=== PATIENT | female | born 1965 | race Caucasian/White ===

== ENCOUNTER 2020-07-25 07:04 | Outpatient (CLI) | payer OTHER, SELFPAY ==
--- NOTE | 2020-07-25 07:11 | US_ITS ---
WS: [id number] THYROID ULTRASOUND (TI-RADS CRITERIA) History: Thyroid nodule.. Technique: Ultrasound examination of the thyroid and adjacent soft tissues is performed. FINDINGS: Right lobe: 4.3 cm x 2.3 cm x 2.3 cm. Volume: 11.8 cm3. Slightly enlarged thyroid lobe. Diffuse coarsened echotexture and heterogeneity with multiple ill-def ined tiny nodules. Left lobe: 4.1 cm x 2.1 cm x 2.2 cm. Volume: 10.0 cm3. Mildly enlarged thyroid with heterogeneity and coarsened echotexture and multiple tiny nodules. No in creased vascularity. Isthmus: 0.7 cm. Estimated total number of nodules greater than or equal to 1 cm: 1 Number of spongiform nodules greater than or equal to 2 cm not described below (TR1): 0 Number of mixed cystic and solid nodules greater than or equal to 1.5 cm not described below (TR2): 0 NODULE: 1 Size: 1.1 x 0.7 x 1.1 cm. Location: Mid RIGHT Composition: Solid/almost completely solid (2) Echogenicity: Isoechoic (1) Shape: Not taller than wide (0) Margins: Lobulated/irregular (2) Echogenic foci: None (0) ACR TI-RADS total points: 5 ACR TI-RADS risk category: TR4 US/US thyroid 97704 Impression: TR4 Recommendation:Follow-up ultrasound in 1, 2, 3 and 5 years. If thyroid nodule(s) change on follow-up examinations the recommendations will be altered as necessary.
== END 2020-07-25 07:05 | disposition home or self-care (01) ==
LOC: US 07:08
PROVIDERS: Visit Provider Family Medicine
DX: E04.1 Nontoxic single thyroid nodule (principal)
CPT/HCPCS: 76536

== ENCOUNTER → 2021-04-01 09:37 | Outpatient (BNVA) | payer OTHER, SELFPAY | PROVIDERS: PCP Family Medicine; Visit Provider Family Medicine | DX: E03.9 Hypothyroidism, unspecified (principal); I10 Essential (primary) hypertension; Z13.220 Encounter for screening for lipoid disorders; Z13.6 Encounter for screening for cardiovascular disorders; Z12.39 Encounter for other screening for malignant neoplasm of breast; E78.2 Mixed hyperlipidemia | CPT/HCPCS: 80053; 80061 ==

== ENCOUNTER 2021-05-20 11:14 | Outpatient (CLI) | payer OTHER, SELFPAY ==
--- NOTE | 2021-05-20 11:00 | MM_ITS ---
WS: [id number] BILATERAL SCREENING DIGITAL MAMMOGRAM WITH CAD HISTORY: Breast CA screening COMPARISON: 04/02/2016 Bilateral CC and MLO views submitted. Computer aided detection analyzed. Breast composition: The breasts are heterogeneously dense, which may obscure small masses. No suspici ous masses, microcalcifications or architectural distortion. MM/[place] [id number] IMPRESSION: BI-RADS: 1-Negative FOLLOW UP: 1 Year Follow-up
== END 2021-05-20 11:15 | disposition home or self-care (01) ==
LOC: RADSHAW 11:15
PROVIDERS: PCP Family Medicine; Visit Provider Family Medicine
DX: Z12.31 Encounter for screening mammogram for malignant neoplasm of breast (principal)
CPT/HCPCS: 77067

== ENCOUNTER → 2021-06-09 08:30 | Outpatient (BNVA) | payer OTHER, SELFPAY | PROVIDERS: PCP Family Medicine; Visit Provider Family Medicine | DX: E78.2 Mixed hyperlipidemia (principal); E03.9 Hypothyroidism, unspecified | CPT/HCPCS: 80061; 84443 ==

== ENCOUNTER → 2021-09-01 10:27 | Outpatient (BNVA) | payer OTHER, SELFPAY | PROVIDERS: PCP Family Medicine; Visit Provider Family Medicine | DX: E03.9 Hypothyroidism, unspecified (principal); I10 Essential (primary) hypertension; Z68.36 Body mass index [BMI] 36.0-36.9, adult; E78.2 Mixed hyperlipidemia; Z71.3 Dietary counseling and surveillance | CPT/HCPCS: 80048; 84439; 84443; 84481 ==

== ENCOUNTER 2021-10-10 08:58 | Outpatient (CLI) | payer OTHER, SELFPAY ==
--- NOTE | 2021-10-10 09:23 | XR_ITS ---
WS: [id number] Right leg including the tibia and fibula, AP and lateral views, 10/10/2021 Clinical Data: right anterior leg injury Comparison: None. Findings: No fractures or dislocations are seen. The tibia and fibula are intact. The soft tissues are normal. The visualized right knee and right ankle are normal. XR/XR tibia fibula RT 2V 70795 Impression: Negative for fracture.
== END 2021-10-10 08:59 | disposition home or self-care (01) ==
PROVIDERS: PCP Family Medicine; Visit Provider Family Medicine Adult Medicine
DX: S86.29 Other injury of muscle(s) and tendon(s) of anterior muscle group at lower leg level (principal); X58.XXXA Exposure to other specified factors, initial encounter
CPT/HCPCS: 73590

== ENCOUNTER 2021-10-13 06:09 | Outpatient (CLI) | payer OTHER, SELFPAY ==
--- NOTE | 2021-10-13 06:15 | USCV_ITS ---
Ana Laura Robles Age: 56 Gender: F : 1965 Exam Date: 10/13/2021 06:30 Ordering Phys: Anil Brown MD Technologist: CESAR [place] [facility] [place] Indication: rt leg pain HISTORY: Lower extremity pain. PROCEDURES: Venous duplex imaging was performed in only the right lower extremity. The following venous structures were evaluated: common femoral vein, profunda vein, proximal portion of the greater saphenous vein, superficial femoral vein, and the popliteal vein. In addition, the posterior tibial and peroneal trunk were evaluated. FINDINGS: There appears to be a fluid collection vs hematoma on anterior right lower leg. Normal 2-D Doppler and augmentation and compressibility throughout the lower extremity venous structures. Additional imaging through the proximal calf veins also reveals no thrombus. Limited evaluation of the greater saphenous vein is patent with no thrombus.. CONCLUSIONS No evidence of right lower extremity DVT. Small fluid collection or hematoma in anterior right lower leg measuring 3.6 x 5.0cm. Overlying varicosities. Edis Zimmerman MD (Electronically Signed) Final Date: 13 October 2021 17:18 S
== END 2021-10-13 06:10 | disposition home or self-care (01) ==
PROVIDERS: PCP Family Medicine; Visit Provider Family Medicine Adult Medicine
DX: M79.661 Pain in right lower leg (principal)
CPT/HCPCS: 93971

== ENCOUNTER 2022-01-13 12:19 | Emergency (ER) | payer OTHER, SELFPAY ==
[2022-01-13] VITALS (8 sets, daily range): BP systolic 134–162; BP diastolic 71–90; PULSE 56–86; RESP 24; TEMP 36.2; O2SAT 95–100; BMI 37.6
--- NOTE | 2022-01-13 13:20 | XRR_ITS ---
PROCEDURE INFORMATION: Exam: XR Chest Exam date and time: 01/13/2022 1:47 PM Age: 56 years old Clinical indication: Pain; Dyspnea; Angina pectoris; Additional info: Dyspnea, chest pain TECHNIQUE: Imaging protocol: XR of the chest. Views: 1 view. COMPARISON: CT Chest/Abdomen/Pelvis w IV* 10/03/2015 11:44 PM FINDINGS: Lungs: Unremarkable. No consolidation. Pleural spaces: Unremarkable. No pleural effusion. No pneumothorax. Heart/Mediastinum: Unremarkable. No cardiomegaly. Bones/joints: Unremarkable. XR/XR chest 1V portable [id number] IMPRESSION: No acute findings.
--- NOTE | 2022-01-13 14:14 | ED_ITS ---
HPI - General Adult General: Chief complaint: Shortness of Breath/Dyspnea Stated complaint: SOB, all over tingling, High BP Time Seen by Provider: 01/13/22 14:08 History of Present Illness: Patient is a 56-year-old female with a history of hypertension on multiple medications presenting to the emergency room for complaints of generalized weakness, fatigue, tingling in the arms or legs, headache, chest pressure, and shortness of breath. 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 Patient is felt unwell during her table games shift manager. Patient began developing tingling her arms and legs this morning. Earlier today, patient began having a slow onset of headache that gradually worsened throughout the day. Patient describes pain radiating from the back to the front. Patient has no prior history of headache. No family history of aneurysms. Patient denies any focal neurological deficit including arm weakness, leg weakness, facial droop, diplopia, slurring of speech, language finding difficulty, or dysphagia. In addition, patient reports mild shortness of breath and chest pressure today. Patient reports chest pressure is not worse with exertion. Patient denies any diaphoresis, nausea/vomiting, abdominal complaints, diarrhea, melena/hematochezia. Patient denies no prior history of cardiac diseases. No family history of cardiac diseases. Patient denies any recent travel or immobilization. Patient has chronic leg swelling and reports that they are due to her blood pressure. Throughout the night, patient noted that her blood pressure is running high with systolic in the 150s. Patient denies any sick contacts around her. Onset:yesterday night Duration:ongoing Location:home Severity:moderate Associated symptoms: Reports chest pain (+chest pressure) and dyspnea; Deny nausea, rash, palpitations or vomiting Review of Systems Const: Denies: fever(s) or chills Eyes: Denies: change in vision ENMT: Denies: mouth pain Card: Reports: chest pain (+chest pressure); Denies: palpitations Resp: Reports: dyspnea; Denies: non-productive cough GI: Denies: abdominal pain, nausea, vomiting or diarrhea : Denies: dysuria Musc: Denies: extremity pain Skin/Breast: Denies: rash or new lesions Neuro: Reports: other (+generalized weakness); Denies: weakness in extremities Psych: Reports: other (Normal mood) Tha/Lymph: Denies: easy bruising PFSH ED PFSH: Medical History Hyperlipemia Hypertension Hypothyroidism Other injury of muscle(s) and tendon(s) of anterior muscle group at lower leg level, left leg, initial encounter fall, Right lower leg injury 10/03/2021 Social History Smoking and tobacco status: never smoked Alcohol intake: current Alcohol intake frequency: few times a month Physical Exam Const: COMMON NORMALS: alert HENMT: COMMON NORMALS: atraumatic HEAD & SCALP: atraumatic MOUTH: moist mucous membranes not abnormal Eye: COMMON NORMALS: EOMs intact bilaterally and conjunctivae normal CONJUNCTIVA: Yes conjunctivae normal Neck/C-Spine: COMMON NORMALS: full ROM and supple Resp: COMMON NORMALS: normal respiratory effort and clear to auscultation bilaterally AUSCULTATION: clear to auscultation bilaterally Cardio: COMMON NORMALS: regular rate RATE: regular rate OTHER: 2+ radial pulses GI: COMMON NORMALS: Soft to palpation and non-tender PALPATION: Yes Soft to palpation Extremity: COMMON NORMALS: full ROM OTHER: 1+ ankle edema b/l, no courtney's sign Neuro: SENSORIUM/ORIENTATION: Yes alert MOTOR EXAM: No Abnormal motor strength present and Other motor observations present (no focal motor deficits) Psych: COMMON NORMALS: speech normal SPEECH: Yes normal speech MOOD & AFFECT: Yes euthymic mood Course Vital Signs: Vital signs: Vital Signs Temperature 97.1 F L 01/13/22 12:33 Pulse Rate 64 01/13/22 19:43 Respiratory Rate 24 H 01/13/22 12:33 Blood Pressure 135/72 01/13/22 19:43 Pulse Oximetry 96 01/13/22 19:43 [facility] - General Adult Medical Decision Making 56-year-old female with history of hypertension presenting to the emergency room with multiple complaints including headache, arm and leg paresthesia, chest pressure, dyspnea and generalized weakness. Physical exam, patient was noted to have blood pressure of 162/90. EKG and troponin within normal limit x2. Patient did not have any active chest pain. CT head negative for any acute findings. Influenza negative COVID-negative. X-ray chest not showing focal pneumonia or other pathologies. At the present time, given the fact that the headache is not sudden onset, no family history of aneurysm, headache is gradually worsening, I do not suspect this is subarachnoid hemorrhage. Patient received IVF, Reglan, Benadryl, morphine, and magnesium with improvement in headache. It is unclear what is causing patient's paresthesia, chest painm shortness of breath and headache at this time. I gave the patient close follow-up with primary care provider in the next few days. In addition, if patient has worsening persistent headache, she is instructed come back to the emergency room for further evaluation. Doubt ACS/PE or other emergent causes of chest pain. No suspicion for aortic dissection given no widened mediastinum, 2+ upper extremity pulses, or tearing pain. No suspicion for PE given no pleuritic chest pain, recent immobilization or surgery hemoptysis, or other VTE risk factors. EKG is non-ischemic. XR normal. Rx tylenol PRN pain for headache Disposition: Discharge. Patient counseled regarding diagnostic impression, tr eatment plan. Patient given ED strict return precautions to return for continuation, worsening, or development of new symptoms. Instructed to f/u w/ PCP regarding symptoms today. Patient verbalized understanding. Lab Data : 01/13/22 14:40 01/13/22 14:40 Radiology Impressions Chest X-Ray 01/13/22 13:20 IMPRESSION: No acute findings. Head CT 01/13/22 14:27 IMPRESSION: 1. No evidence of intracranial hemorrhage or mass effect. 2. No acute intracranial findings. Laboratory Results WBC 7.6 10^3/uL (4.0-10.0) 01/13/22 14:40 RBC 4.12 10^6/uL (4.1-5.3) 01/13/22 14:40 Hgb 11.5 g/dL (11.5-15.3) 01/13/22 14:40 Hct 33.5 % (37.0-47.0) L 01/13/22 14:40 MCV 81.3 fl (81-99) 01/13/22 14:40 MCH 27.9 pg (28.0-34.0) L 01/13/22 14:40 MCHC 34.3 g/dL (30.0-36.0) 01/13/22 14:40 RDW 13.0 % (12.1-15.1) 01/13/22 14:40 Plt Count 221 10^3/cmm (130-400) 01/13/22 14:40 MPV 11.1 fL (7.4-10.4) H 01/13/22 14:40 Neut % (Auto) 67.3 % 01/13/22 14:40 Lymph % (Auto) 25.1 % 01/13/22 14:40 [place] % (Auto) 5.0 % 01/13/22 14:40 Eos % (Auto) 2.0 % 01/13/22 14:40 Baso % (Auto) 0.3 % 01/13/22 14:40 Neut # (Auto) 5.14 10^3/uL (1.8-7.7) 01/13/22 14:40 Lymph # (Auto) 1.9 10^3/uL (0.8-4.8) 01/13/22 14:40 [place] # (Auto) 0.4 10^3/uL (0.2-0.9) 01/13/22 14:40 Eos # (Auto) 0.2 10^3/uL (0.0-0.8) 01/13/22 14:40 Baso # (Auto) 0.0 10^3/uL (0.0-0.1) 01/13/22 14:40 Nucleated RBC % (auto) 0 % 01/13/22 14:40 Nucleated RBCs # 0.0 /100WBC 01/13/22 14:40 Sodium 133 mmol/L (136-145) L 01/13/22 14:40 Potassium 3.6 mmol/L (3.5-5.1) 01/13/22 14:40 Chloride 98 mmol/L (98-107) 01/13/22 14:40 Carbon Dioxide 24 mmol/L (22-29) 01/13/22 14:40 Anion Gap 14.6 (5-19) 01/13/22 14:40 BUN 21 mg/dL (6-20) H 01/13/22 14:40 Creatinine 0.6 mg/dL (0.5-0.9) 01/13/22 14:40 GFR Calculation 103.0 mL/min (90-130) 01/13/22 14:40 Glucose 97 mg/dL (65-115) 01/13/22 14:40 Calculated Osmolality 279 mOsm/kg (285-295) L 01/13/22 14:40 Calcium 8.8 mg/dL (8.5-10.5) 01/13/22 14:40 Troponin T Baseline 9 ng/L (0-10) 01/13/22 14:40 Troponin T 120 Minute 9.08 ng/L (0-10) 01/13/22 16:48 Delta Troponin T 0.08 ABS# (0-10) 01/13/22 16:48 Coronavirus 229E (PCR) Not detected (NOT DETECT) 01/13/22 15:45 Influenza Type A Ag Negative (Negative) 01/13/22 15:45 Influenza Type B Ag Negative (Negative) 01/13/22 15:45 SARS-CoV-2 (PCR) Not detected (NOT DETECT) 01/13/22 15:45 Imaging Data Other Imaging: Radiologist's impression: [place] [address] CT Scan Report Signed Patient: Ana Laura Robles Unit #: [id number] : 1965 Age/Sex: 56 / F ADM Date: 01/13/22 Loc: ER Room/Bed: Attending Dr: Ordering Provider/Ordering MD: Ileana Ambrocio MD Date of Service: 01/13/22 Procedure(s): CT head wo con* [id number] Accession Number(s): [id number] Report Number: [id number] WS: [id number] CT HEAD TECHNIQUE: Noncontrast CT of the head obtained from the skullbase to the vertex. CLINICAL INFORMATION: headache COMPARISON: None. DLP: 893.[address] scans at [facility] use at least one of these dose optimization techniques: automated exposure control; mA and/or kV adjustment per patient size (includes targeted exams where dose is matched to clinical indication); or iterative reconstruction. FINDINGS: No evidence of intracranial hemorrhage or mass effect. Ventricular system and basal cisterns are patent. No extra-axial fluid collections. No evidence of mass or mass effect. Normal marc-white differentiation. No significant parenchymal volume loss. Paranasal sinuses and mastoid air cells are well aerated. .Normal visualized soft tissues. CT/CT head wo con* [id number] IMPRESSION: ? 1.? No evidence of intracranial hemorrhage or mass effect. 2.? No acute intracranial findings. ? Dictated By: Edis Zimmerman MD Signed By: Edis Zimmerman MD Signed Date/Time: 01/13/22 1521 DD/ [address] [address] XRay Report Signed Patient: Ana Laura Robles Unit #: [id number] : 1965 Age/Sex: 56 / F ADM Date: 01/13/22 Loc: ER Room/Bed: Attending Dr: Ordering Provider/Ordering MD: Ileana Ambrocio MD Date of Service: 01/13/22 Procedure(s): XR chest 1V portable [id number] Accession Number(s): [id number] Report Number: [id number] PROCEDURE INFORMATION: Exam: XR Chest Exam date and time: 01/13/2022 1:47 PM Age: 56 years old Clinical indication: Pain; Dyspnea; Angina pectoris; Additional info: Dyspnea, chest pain TECHNIQUE: Imaging protocol: XR of the chest. Views: 1 view. COMPARISON: CT Chest/Abdomen/Pelvis w IV* 10/03/2015 11:44 PM FINDINGS: Lungs: Unremarkable. No consolidation. Pleural spaces: Unremarkable. No pleural effusion. No pneumothorax. Heart/Mediastinum: Unremarkable. No cardiomegaly. Bones/joints: Unremarkable. XR/XR chest 1V portable [id number] IMPRESSION: No acute findings. ? Dictated By: Triston Lazar Signed By: Triston Lazar Signed Date/Time: 01/13/22 1418 DD/ 1347 Discharge Plan Discharge Patient Disposition: Home Clinical Impression: Headache, Fatigue, Arm numbness, Leg numbness Condition: Stable Prescriptions: No Action calcium carbonate 600 mg calcium (1,500 mg) tablet 600 mg PO DAILY 0RF aspirin 81 mg tablet,chewable 81 mg PO DAILY 0RF pyridoxine (vitamin B6) 100 mg tablet 100 mg PO DAILY 0RF One-A-Day Women's 50 Plus 400-20 mcg tablet 1 tab PO DAILY 0RF atenolol 25 mg tablet 25 mg PO DAILY Qty: 90 1RF hydrochlorothiazide 25 mg tablet 25 mg PO BID Qty: 180 1RF atorvastatin 40 mg tablet 40 mg PO DAILY Qty: 90 1RF thyroid (pork) [Eastern Thyroid] 120 mg tablet 120 mg PO DAILY Qty: 30 2RF clonidine HCl 0.1 mg tablet 0.1 mg PO BID Qty: 60 2RF losartan 50 mg tablet 50 mg PO BID Qty: 90 1RF magnesium 30 mg Tablet 30 mg PO DAILY 0RF amlodipine 5 mg tablet 5 mg PO DAILY Qty: 30 0RF Discharge Orders: Discharge ED (Routine); Ordered 01/13/22 Ordered By: Ileana Ambrocio Discharge Diet: Advance as tolerated Discharge Activity: Increase activity as tolerated Patient Instructions: Acute Headache (ED), Fatigue (ED) Activity Restrictions/Additional Instructions: Please come back to the emergency room you have any fever chills, worsening headache, focal weakness, nausea/vomiting, inability to perform daily activity, or any new concerning complaints. Come back to the emergency room if your chest pain worsens, have any fever or chills, worsening shortness of breath, worsening exertional lightheadedness, or any new or concerning complaints. 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
--- NOTE | 2022-01-13 14:27 | CT_ITS ---
WS: [id number] CT HEAD TECHNIQUE: Noncontrast CT of the head obtained from the skullbase to the vertex. CLINICAL INFORMATION: headache COMPARISON: None. DLP: 893.[address] scans at [facility] use at least one of these dose optimization techniques: automated e xposure control; mA and/or kV adjustment per patient size (includes targeted exams where dose is matc hed to clinical indication); or iterative reconstruction. FINDINGS: No evidence of intracranial hemorrhage or mass effect. Ventricular system and basal cisterns are garzon nt. No extra-axial fluid collections. No evidence of mass or mass effect. Normal marc-white different iation. No significant parenchymal volume loss. Paranasal sinuses and mastoid air cells are well aerated. .Normal visualized soft tissues. CT/CT head wo con* [id number] IMPRESSION: 1. No evidence of intracranial hemorrhage or mass effect. 2. No acute intracranial findings.
[2022-01-13 14:49] LABS: Basophils % 0.3 %; Eosinophils # 0.2 10^3/uL (0.0-0.8); Hematocrit 33.5 % (37.0-47.0); Hemoglobin 11.5 g/dL (11.5-15.3); Lymphocytes # 1.9 10^3/uL (0.8-4.8); Lymphocytes % 25.1 %; Mean Corpuscular HGB Conc 34.3 g/dL (30.0-36.0); Mean Corpuscular Hemoglobin 27.9 pg (28.0-34.0); Mean Corpuscular Volume 81.3 fl (81-99); Mean Platelet Volume 11.1 fL (7.4-10.4); Monocytes # 0.4 10^3/uL (0.2-0.9); Neutrophils # 5.14 10^3/uL (1.8-7.7); Neutrophils % 67.3 %; Nucleated Red Blood Cells % 0 %; Platelet Count 221 10^3/cmm (130-400); Red Blood Count 4.12 10^6/uL (4.1-5.3); White Blood Count 7.6 10^3/uL (4.0-10.0)
[2022-01-13 15:09] LABS: Troponin(5th) Baseline 9 ng/L (0-10)
[2022-01-13 15:10] LABS: Anion Gap 14.6 (5-19); Blood Urea Nitrogen 21 mg/dL (6-20); Calcium 8.8 mg/dL (8.5-10.5); Carbon Dioxide 24 mmol/L (22-29); Chloride 98 mmol/L (98-107); Creatinine Clr Calc Pharmacy 149.3766; Glucose 97 mg/dL (65-115); Osmolality Calculated 279 mOsm/kg (285-295); Potassium 3.6 mmol/L (3.5-5.1); Sodium 133 mmol/L (136-145)
--- NOTE | 2022-01-13 15:20 | ECG_ITS ---
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 Measurements Intervals [place] Rate: 60 P: 32 ID: 192 QRS: -15 QRSD: 111 T: 16 QT: 442 QTc: 443 Interpretive Statements SINUS RHYTHM MODERATE INTRAVENTRICULAR CONDUCTION DELAY [110+ ms QRS DURATION] Compared to ECG 10/03/2015 22:22:37 Intraventricular conduction delay now present Electronically Signed On 01-13-2022 17:57:23 CDT by Jorge Canseco M.D. [id number]
[2022-01-13] MEDS: acetaminophen 500 mg Tablet 1000 MG PO (15:29)
[2022-01-13] MEDS: metoclopramide 5 mg/mL SDV 2 mL 10 MG IVP (15:29)
[2022-01-13] MEDS: diphenhydrAMINE 50 mg/mL SDV 1mL IVP (15:29)
[2022-01-13] MEDS: magnesium sulfate premix 2 GM/50 ML PIGGYBACK IV (15:30)
[2022-01-13] MEDS: sodium chloride 0.9% 1,000 ML 999 ML IV ×2 (15:30→17:38)
[2022-01-13 16:36] LABS: Influenza A by IFA Negative (Negative); Influenza B by IFA Negative (Negative)
[2022-01-13] MEDS: amlodipine 5 mg Tablet PO (16:43)
[2022-01-13 17:14] LABS: Troponin 5 2HR 9.08 ng/L (0-10)
[2022-01-13 17:22] LABS: Troponin 5 2HR Delta 0.08 ABS# (0-10)
[2022-01-13 18:05] LABS: Adenovirus Not Detected (NOT DETECT); Chlamydia Pneumoniae Not Detected (NOT DETECT); Coronavirus 229E,HKU1,NL63,OC4 Not Detected (NOT DETECT); Human Metapneumovirus Not Detected (NOT DETECT); Human Rhinovirus/Enterovirus Not Detected (NOT DETECT); Influenza A Not Detected (NOT DETECT); Influenza A H1 Not Detected (NOT DETECT); Influenza A H1-2009 Not Detected (NOT DETECT); Influenza A H3 Not Detected (NOT DETECT); Influenza B Not Detected (NOT DETECT); Mycoplasma Pneumoniae Not Detected (NOT DETECT); Parainfluenza Virus Type 1 Not Detected (NOT DETECT); Parainfluenza Virus Type 2 Not Detected (NOT DETECT); Parainfluenza Virus Type 3 Not Detected (NOT DETECT); Parainfluenza Virus Type 4 Not Detected (NOT DETECT); Respiratory Syncytial Virus A Not Detected (NOT DETECT); Respiratory Syncytial Virus B Not Detected (NOT DETECT); SARS-COV-2 Not Detected (NOT DETECT)
== END 2022-01-13 19:35 | disposition home or self-care (01) ==
PROVIDERS: Emergency Provider Emergency Medicine; PCP Family Medicine
DX: R51.9 Headache, unspecified (principal); R53.83 Other fatigue; R20.0 Anesthesia of skin; I10 Essential (primary) hypertension
CPT/HCPCS: 70450; 71045; 80048; 84484; 85025; 87635; 87804; 93005; 96361; 96365; 96375; 99285; J1200; J2765; J3475; J7030

== ENCOUNTER 2022-01-14 19:28 | Emergency (ER) | payer OTHER, SELFPAY ==
[2022-01-14 19:39] VITALS: BP 182/114; PULSE 88; RESP 20; TEMP 36.6; O2SAT 93; BMI 37.6
--- NOTE | 2022-01-14 19:57 | ECG_ITS ---
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 Measurements Intervals [place] Rate: 77 P: 39 NJ: 173 QRS: -11 QRSD: 106 T: 23 QT: 384 QTc: 437 Interpretive Statements SINUS RHYTHM Compared to ECG 01/13/2022 15:28:12 Intraventricular conduction delay no longer present Electronically Signed On 01-15-2022 15:18:11 CDT by Kevin Pradhan M.D. [id number]
--- NOTE | 2022-01-14 19:57 | XRR_ITS ---
PROCEDURE INFORMATION: Exam: XR Chest Exam date and time: 01/14/2022 8:37 PM Age: 56 years old Clinical indication: Pain; Chest pressure TECHNIQUE: Imaging protocol: XR of the chest. Views: 1 view. COMPARISON: CR XR chest 1V portable [id number] 01/13/2022 1:47 PM FINDINGS: Lungs: Unremarkable. No consolidation. Pleural spaces: Unremarkable. No pleural effusion. No pneumothorax. Heart/Mediastinum: Unremarkable. No cardiomegaly. Bones/joints: Unremarkable. XR/XR chest 1V portable [id number] IMPRESSION: No acute findings.
--- NOTE | 2022-01-14 20:42 | W.ED.GENADLT ---
HPI - General Adult General: Chief complaint: General Medical Stated complaint: High BP, Chest pressure Time Seen by Provider: 01/14/22 20:29 History of Present Illness: Ms. Robles is a 56-year-old lady with history of hypertension, hyperlipidemia, hypothyroidism, obesity who presents to the emergency room due to chest discomfort and high blood pressure with associated symptoms. Onset of symptoms was 2 to 3 days ago and gradual. She noticed her blood pressure was higher than usual and she has associated chest pressure without significant radiation. Additional time she has upper and lower sensory tingling worse in the distal and tonsils on the left though no other focal neuro symptoms. Course has been intermittent. Symptoms when present are mild to moderate without specific exacerbating factors. Reports compliance with medication regimen. No other specific changes in health, exacerbating, or alleviating factors identified. Onset (ago): day(s) Severity: moderate Pain Consistency: intermittent Relieving factors: none Exacerbating factors: none Review of Systems General: Reports: 10 or more systems reviewed and unremarkable except in HPI and below PFS ED PFSH: Medical History Hyperlipemia Hypertension Hypothyroidism Other injury of muscle(s) and tendon(s) of anterior muscle group at lower leg level, left leg, initial encounter fall, Right lower leg injury 10/03/2021 Social History Smoking and tobacco status: never smoked Alcohol intake: current Alcohol intake frequency: few times a month Physical Exam Const: COMMON NORMALS: patient oriented x3 and alert GENERAL APPEARANCE: cooperative and well developed HENMT: COMMON NORMALS: normocephalic and atraumatic HEAD & SCALP: normocephalic and atraumatic THROAT: posterior oropharynx normal Eye: COMMON NORMALS: conjunctivae normal CONJUNCTIVA: Yes conjunctivae normal SCLERA: sclerae normal Neck/C-Spine: COMMON NORMALS: supple GENERAL: Yes trachea midline Resp: COMMON NORMALS: clear to auscultation bilaterally EFFORT & INSPECTION: Yes able to speak in complete sentences AUSCULTATION: clear to auscultation bilaterally Cardio: COMMON NORMALS: regular rate and regular rhythm RATE: regular rate RHYTHM: regular rhythm GI: COMMON NORMALS: Soft to palpation PALPATION: Yes Soft to palpation and No Tenderness to palpation present (GI) PERCUSSION: normal to percussion Extremity: GENERAL: Yes normal exam except as noted and No edema Neuro: COMMON NORMALS: patient oriented x3, CN's II-XII intact bilaterally, moves all extremities, no focal motor deficits and no sensory deficits noted SENSORIUM/ORIENTATION: Yes alert and No Orientation impaired Psych: COMMON NORMALS: mental status grossly normal and Normal thought process present THOUGHT PROCESS: Normal thought process present Course ED course: - Patient was seen and evaluated by me at bedside - Patient placed on cardiac monitors, IV access obtained - Initial evaluation notable for exam as above. - Labs and xrays personally interpreted by me. EKG shows sinus rhythm with no STEMI. -Antihypertensive ordered - Labs notable for no evidence of endorgan dysfunction, mild hypokalemia noted with replenishment ordered. TSH elevated with normal free T4. - Imaging notable for no lobar consolidation or pneumothorax. CTA head and neck with mild disease. - Upon serial reexamination after treatment the patient was improved - Based on patient history, evaluation, and testing as interpreted the most likely cause of the patient's condition is chest pressure and paresthesias - The results of ED evaluation were discussed with the patient including prescriptions and/or symptomatic cares (if applicable) including appropriate and responsible use, followup plan, and return precautions. Patient on aspirin and statin. Discussed adding Plavix though the patient prefers to discuss with primary care provider first. The patient verbalized understanding and felt safe for discharge. - Patient discharged in satisfactory condition. Note: Click bubbles or prepopulated isbell in note writing are used for assistance with data collection and billing and are inherently more limited than narrative and other text portions of this note. Please use narrative for additional clinical history and defer to narrative/free test for any case of contradictory information. If information appears in only free text or click bubble it should be considered present or absent as reported. Please contact note functional tester typewriters for clarifications of clinical information or contradictory information. MDM is a brief summary, contradictory or erroneous seeming information should be clarified and full note should be reviewed. Vital Signs: Vital signs: Vital Signs Temperature 97.8 F 01/14/22 19:39 Pulse Rate 60 01/15/22 02:40 Respiratory Rate 16 01/15/22 02:40 Blood Pressure 156/62 01/15/22 02:40 Pulse Oximetry 98 01/15/22 02:40 MDM - General Adult Medical Decision Making 56-year-old lady presenting with chest pressure and occasional paresthesias correlating with increasing blood pressure. ED evaluation with no focal neurologic deficits. No evidence of endorgan dysfunction on laboratory studies. CT imaging with mild carotid disease. Satisfactory for outpatient management with strict return precautions. Medical Records I reviewed the patient's medical records. Lab Data I reviewed the patient's lab results. : 01/14/22 20:52 01/14/22 20:52 Radiology Impressions Chest X-Ray 01/14/22 19:57 IMPRESSION: No acute findings. Head/Neck CTA 01/14/22 22:23 IMPRESSION: No large vessel stenosis or occlusion. IMPRESSION: Less than 50% carotid artery stenosis. REFERENCES: NASCET CRITERIA. The degree of internal carotid artery stenosis is based on NASCET criteria. Normal is no stenosis. Mild is less than 50% stenosis. Moderate is 50-69% stenosis. Severe is 70% to 99% stenosis. Total occlusion is no detectable patent lumen. Head CT 01/14/22 22:39 IMPRESSION: No acute intracranial abnormality. Laboratory Results WBC 8.0 10^3/uL (4.0-10.0) 01/14/22 20:52 RBC 4.30 10^6/uL (4.1-5.3) 01/14/22 20:52 Hgb 11.9 g/dL (11.5-15.3) 01/14/22 20:52 Hct 35.5 % (37.0-47.0) L 01/14/22 20:52 MCV 82.6 fl (81-99) 01/14/22 20:52 MCH 27.7 pg (28.0-34.0) L 01/14/22 20:52 MCHC 33.5 g/dL (30.0-36.0) 01/14/22 20:52 RDW 13.3 % (12.1-15.1) 01/14/22 20:52 Plt Count 245 10^3/cmm (130-400) 01/14/22 20:52 MPV 11.1 fL (7.4-10.4) H 01/14/22 20:52 Neut % (Auto) 66.9 % 01/14/22 20:52 Lymph % (Auto) 25.5 % 01/14/22 20:52 Jefferson % (Auto) 5.3 % 01/14/22 20:52 Eos % (Auto) 1.6 % 01/14/22 20:52 Baso % (Auto) 0.5 % 01/14/22 20:52 Neut # (Auto) 5.37 10^3/uL (1.8-7.7) 01/14/22 20:52 Lymph # (Auto) 2.1 10^3/uL (0.8-4.8) 01/14/22 20:52 Jefferson # (Auto) 0.4 10^3/uL (0.2-0.9) 01/14/22 20:52 Eos # (Auto) 0.1 10^3/uL (0.0-0.8) 01/14/22 20:52 Baso # (Auto) 0.0 10^3/uL (0.0-0.1) 01/14/22 20:52 Nucleated RBC % (auto) 0 % 01/14/22 20:52 Nucleated RBCs # 0.0 /100WBC 01/14/22 20:52 Sodium 138 mmol/L (136-145) 01/14/22 20:52 Potassium 3.3 mmol/L (3.5-5.1) L 01/14/22 20:52 Chloride 101 mmol/L (98-107) 01/14/22 20:52 Carbon Dioxide 28 mmol/L (22-29) 01/14/22 20:52 Anion Gap 12.3 (5-19) 01/14/22 20:52 BUN 19 mg/dL (6-20) 01/14/22 20:52 Creatinine 0.7 mg/dL (0.5-0.9) 01/14/22 20:52 GFR Calculation 86.2 mL/min (90-130) L 01/14/22 20:52 Glucose 108 mg/dL (65-115) 01/14/22 20:52 Calculated Osmolality 289 mOsm/kg (285-295) 01/14/22 20:52 Calcium 9.5 mg/dL (8.5-10.5) 01/14/22 20:52 Troponin T Baseline 10 ng/L (0-10) 01/14/22 20:52 Troponin T 120 Minute 11.56 ng/L (0-10) H 01/14/22 23:32 Delta Troponin T 1.56 ABS# (0-10) 01/14/22 23:32 TSH 5.48 uIU/mL (0.27-4.20) H 01/14/22 21:50 Free T4 0.83 ng/dL (0.82-1.77) 01/14/22 20:52 Discharge Plan Discharge Patient Disposition: Home Clinical Impression: Hypertension, Paresthesias, Carotid artery plaque, Hypokalemia Condition: Stable Prescriptions: New amlodipine 5 mg tablet 5 mg PO DAILY Qty: 30 0RF No Action calcium carbonate 600 mg calcium (1,500 mg) tablet 600 mg PO DAILY 0RF aspirin 81 mg tablet,chewable 81 mg PO DAILY 0RF pyridoxine (vitamin B6) 100 mg tablet 100 mg PO DAILY 0RF One-A-Day Women's 50 Plus 400-20 mcg tablet 1 tab PO DAILY 0RF atenolol 25 mg tablet 25 mg PO DAILY Qty: 90 1RF hydrochlorothiazide 25 mg tablet 25 mg PO BID Qty: 180 1RF atorvastatin 40 mg tablet 40 mg PO DAILY Qty: 90 1RF thyroid (pork) [Flatgap Thyroid] 120 mg tablet 120 mg PO DAILY Qty: 30 2RF clonidine HCl 0.1 mg tablet 0.1 mg PO BID Qty: 60 2RF losartan 50 mg tablet 50 mg PO BID Qty: 90 1RF magnesium 30 mg Tablet 30 mg PO DAILY 0RF Discharge Orders: Discharge ED (Routine); Ordered 01/15/22 Ordered By: Tanner Goetz Referrals: Francis Rizo DO [Primary Care Provider] - Discharge Diet: Usual diet Discharge Activity: Increase activity as tolerated Activity Restrictions/Additional Instructions: Thank you for visiting the emergency department. You were seen evaluated for elevated heart rate and high blood pressure associated with abnormal feeling. The exact cause of the symptoms is unclear. No evidence of endorgan dysfunction (stress on kidneys or heart) was identified on laboratory studies. As discussed your CT scan does show small volume plaque of the left common carotid artery and moderate mixed plaque of the left internal carotid as well as small volume noncalcified plaque of the right internal carotid artery. Neither of these is causing significant stenosis or narrowing of the blood vessels. As discussed, you should continue your aspirin and atorvastatin, discussed with your primary care provider regarding possibility of adding Plavix. I will add amlodipine to your antihypertensive regimen. Please follow-up with your primary care provider. Please return to the emergency department for worsening symptoms or anything else that you are concerned about and feel needs emergency department evaluation. Coding Level of Care Code ED Fishing Instructor for Shawn Pillai
[2022-01-14 21:02] LABS: Basophils % 0.5 %; Eosinophils # 0.1 10^3/uL (0.0-0.8); Eosinophils % 1.6 %; Hematocrit 35.5 % (37.0-47.0); Hemoglobin 11.9 g/dL (11.5-15.3); Lymphocytes # 2.1 10^3/uL (0.8-4.8); Lymphocytes % 25.5 %; Mean Corpuscular HGB Conc 33.5 g/dL (30.0-36.0); Mean Corpuscular Hemoglobin 27.7 pg (28.0-34.0); Mean Corpuscular Volume 82.6 fl (81-99); Mean Platelet Volume 11.1 fL (7.4-10.4); Monocytes # 0.4 10^3/uL (0.2-0.9); Monocytes % 5.3 %; Neutrophils # 5.37 10^3/uL (1.8-7.7); Neutrophils % 66.9 %; Nucleated Red Blood Cells % 0 %; Platelet Count 245 10^3/cmm (130-400); Red Cell Distribution Width 13.3 % (12.1-15.1)
[2022-01-14 21:14] VITALS: BP 168/66; PULSE 89; RESP 16; O2SAT 98
[2022-01-14 21:23] LABS: Anion Gap 12.3 (5-19); Blood Urea Nitrogen 19 mg/dL (6-20); Calcium 9.5 mg/dL (8.5-10.5); Carbon Dioxide 28 mmol/L (22-29); Chloride 101 mmol/L (98-107); Glomerular Filtration Rate 86.2 mL/min (90-130); Glucose 108 mg/dL (65-115); Osmolality Calculated 289 mOsm/kg (285-295); Potassium 3.3 mmol/L (3.5-5.1); Sodium 138 mmol/L (136-145)
[2022-01-14 21:24] LABS: Troponin(5th) Baseline 10 ng/L (0-10)
[2022-01-14] MEDS: potassium chloride ER 20 mEq Tablet 40 MEQ PO (21:42)
[2022-01-14] MEDS: cloNIDine 0.1 mg Tablet PO (21:53)
--- NOTE | 2022-01-14 21:57 | ECG_ITS ---
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 Measurements Intervals [place] Rate: 61 P: 38 [place]: 181 QRS: -8 QRSD: 106 T: 9 QT: 427 QTc: 431 Interpretive Statements SINUS RHYTHM Compared to ECG 01/14/2022 20:44:20 No significant changes Electronically Signed On 01-15-2022 15:23:48 CDT by Kevin Pradhan M.D. [id number]
--- NOTE | 2022-01-14 22:23 | CTR_ITS ---
PROCEDURE INFORMATION: Exam: CT Angiography Head With Contrast, Arteriography Exam date and time: 01/14/2022 10:49 PM Age: 56 years old Clinical indication: Pain; Headache and weakness; Prior surgery; Surgery type: Thyroid; Patient HX: C/O headache, hypertension, and numbness to hands. ; Additional info: Stroke like symptoms, headache, paresthesias TECHNIQUE: Imaging protocol: Computed tomography angiography of the head with contrast. Exam focused on the arteries. 3D rendering (Not supervised by radiologist): MIP and/or 3D reconstructed images were created by the technologist. Radiation optimization: All CT scans at this facility use at least one of these dose optimization techniques: automated exposure control; mA and/or kV adjustment per patient size (includes targeted exams where dose is matched to clinical indication); or iterative reconstruction. Contrast material: OMNI 350; Contrast volume: 95 ml; Contrast route: INTRAVENOUS (IV); COMPARISON: CT head wo con* [id number] 01/14/2022 10:47 PM RADIATION DOSE METRICS: Total DLP (mGy-cm): 2368.82 FINDINGS: ANTERIOR CIRCULATION: Right internal carotid artery: Unremarkable. Intracranial segment is patent with no significant stenosis. No aneurysm. Right middle cerebral artery: Unremarkable. No occlusion or significant stenosis. No aneurysm. Right anterior cerebral artery: Unremarkable. No occlusion or significant stenosis. No aneurysm. Left internal carotid artery: Unremarkable. Intracranial segment is patent with no significant stenosis. No aneurysm. Left middle cerebral artery: Unremarkable. No occlusion or significant stenosis. No aneurysm. Left anterior cerebral artery: Unremarkable. No occlusion or significant stenosis. No aneurysm. POSTERIOR CIRCULATION: Right vertebral artery: Unremarkable. No occlusion or significant stenosis. No aneurysm. Left vertebral artery: Unremarkable. No occlusion or significant stenosis. No aneurysm. Basilar artery: Unremarkable. No occlusion or significant stenosis. No aneurysm. Right posterior cerebral artery: Unremarkable. No occlusion or significant stenosis. No aneurysm. Left posterior cerebral artery: Unremarkable. No occlusion or significant stenosis. No aneurysm. Brain: No definite mass, mass effect, or midline shift. Cerebral ventricles: No ventriculomegaly. Bones/joints: Unremarkable. No acute fracture. Soft tissues: Unremarkable. PROCEDURE INFORMATION: Exam: CT Angiography Neck With Contrast Exam date and time: 01/14/2022 10:49 PM Age: 56 years old Clinical indication: Pain; Headache and weakness; Prior surgery; Surgery type: Thyroid; Patient HX: C/O headache, hypertension, and numbness to hands. ; Additional info: Stroke like symptoms, headache, paresthesias TECHNIQUE: Imaging protocol: Computed tomography angiography of the neck with contrast. 3D rendering (Not supervised by radiologist): MIP and/or 3D reconstructed images were created by the technologist. Radiation optimization: All CT scans at this facility use at least one of these dose optimization techniques: automated exposure control; mA and/or kV adjustment per patient size (includes targeted exams where dose is matched to clinical indication); or iterative reconstruction. Contrast material: OMNI 350; Contrast volume: 95 ml; Contrast route: INTRAVENOUS (IV); COMPARISON: CT Cervical Spine wo* [id number] 10/03/2015 11:29 PM RADIATION DOSE METRICS: Total DLP (mGy-cm): 2368.82 FINDINGS: Right common carotid artery: No stenosis. No dissection or occlusion. Right internal carotid artery: Small volume noncalcified plaque of the proximal right ICA. Mild stenosis. Right external carotid artery: No occlusion or stenosis of the origin. Left common carotid artery: Small volume plaque of the mid through distal left common carotid artery with mild stenosis. Left internal carotid artery: Moderate mixed plaque volume of the proximal left ICA. Mild stenosis. Left external carotid artery: No occlusion or stenosis of the origin. Right vertebral artery: No stenosis. No dissection or occlusion. Left vertebral artery: No stenosis. No dissection or occlusion. Soft tissues: Normal. No significant soft tissue swelling. Bones/joints: No acute fracture. CT/CT angio headneck* [id number] IMPRESSION: No large vessel stenosis or occlusion. IMPRESSION: Less than 50% carotid artery stenosis. REFERENCES: NASCET CRITERIA. The degree of internal carotid artery stenosis is based on NASCET criteria. Normal is no stenosis. Mild is less than 50% stenosis. Moderate is 50-69% stenosis. Severe is 70% to 99% stenosis. Total occlusion is no detectable patent lumen.
[2022-01-14 22:28] LABS: Thyroid Stimulating Hormone 5.48 uIU/mL (0.27-4.20)
--- NOTE | 2022-01-14 22:39 | CTR_ITS ---
PROCEDURE INFORMATION: Exam: CT Head Without Contrast Exam date and time: 01/14/2022 10:47 PM Age: 56 years old Clinical indication: Numbness / parasthesia; Patient HX: Head pounding, tingling hands, feeling heart pounding, and chest pressure. PT states BP was 160/95; Additional info: Stroke like symptoms, headache, paresthesia TECHNIQUE: Imaging protocol: Computed tomography of the head without contrast. Radiation optimization: All CT scans at this facility use at least one of these dose optimization techniques: automated exposure control; mA and/or kV adjustment per patient size (includes targeted exams where dose is matched to clinical indication); or iterative reconstruction. COMPARISON: CT head wo con* [id number] 01/13/2022 3:09 PM RADIATION DOSE METRICS: Total DLP (mGy-cm): 872.01 FINDINGS: Brain: Normal. No hemorrhage. Unremarkable white matter. No mass effect. Cerebral ventricles: No ventriculomegaly. Paranasal sinuses: Visualized sinuses are unremarkable. No fluid levels. Mastoid air cells: Visualized mastoid air cells are well aerated. Bones/joints: Unremarkable. No acute fracture. Soft tissues: Unremarkable. CT/CT head wo con* [id number] IMPRESSION: No acute intracranial abnormality.
[2022-01-14] MEDS: iohexol 350 mg/mL 100 mL Btl IV (22:51)
[2022-01-14 23:15] LABS: Free T4 Free Thyroxine 0.83 ng/dL (0.82-1.77)
[2022-01-15] VITALS: BP 181/70; PULSE 61; RESP 16; O2SAT 96
[2022-01-15 00:02] LABS: Troponin 5 2HR 11.56 ng/L (0-10)
[2022-01-15 00:24] LABS: Troponin 5 2HR Delta 1.56 ABS# (0-10)
[2022-01-15 01:30] VITALS: BP 160/74; PULSE 64; RESP 16; O2SAT 99
[2022-01-15] MEDS: labetalol 5 mg/mL SDV 20mL 10 MG IVP (01:30)
[2022-01-15 01:43] VITALS: BP 161/67; PULSE 64; RESP 16; O2SAT 99
[2022-01-15 02:40] VITALS: BP 156/62; PULSE 60; RESP 16; O2SAT 98
== END 2022-01-15 02:42 | disposition home or self-care (01) ==
PROVIDERS: Emergency Medicine; Emergency Provider Emergency Medicine; PCP Family Medicine
DX: I10 Essential (primary) hypertension (principal); R20.2 Paresthesia of skin; I65.29 Occlusion and stenosis of unspecified carotid artery; E87.6 Hypokalemia; Z79.82 Long term (current) use of aspirin
CPT/HCPCS: 70450; 70496; 70498; 71045; 80048; 84439; 84443; 84484; 85025; 93005; 96374; 99285; J3490; Q9967

== ENCOUNTER → 2022-01-19 09:41 | Outpatient (BNVA) | payer OTHER, SELFPAY | PROVIDERS: PCP Family Medicine; Visit Provider Family Medicine | DX: E04.1 Nontoxic single thyroid nodule (principal); E03.9 Hypothyroidism, unspecified; E89.40 Asymptomatic postprocedural ovarian failure; G47.30 Sleep apnea, unspecified | CPT/HCPCS: 80053; 80061; 82672; 83001 ==

== ENCOUNTER → 2022-02-16 10:09 | Outpatient (BNVA) | payer OTHER, SELFPAY | PROVIDERS: PCP Family Medicine; Visit Provider Family Medicine | DX: I10 Essential (primary) hypertension (principal); E03.9 Hypothyroidism, unspecified; M54.50 Low back pain, unspecified | CPT/HCPCS: 84443 ==

== ENCOUNTER 2022-02-20 11:46 | Outpatient (CLI) | payer OTHER, SELFPAY ==
--- NOTE | 2022-02-20 12:00 | US_ITS ---
WS: [id number] RENAL ULTRASOUND HISTORY: Worsening hypertension COMPARISON: None available. TECHNIQUE: 2-D and color Doppler imaging of the kidney submitted. Right kidney: 11.4 cm x 5.7 cm x 5.3 cm. Normal echogenicity with no hydronephrosis or mass. Left kidney: 10.4 cm x 4.5 cm x 5.4 cm. Normal echogenicity with no hydronephrosis or mass. Aorta: Not imaged. Urinary Bladder: Not imaged. US/US renal BI* [id number] IMPRESSION: Normal renal ultrasound.
--- NOTE | 2022-02-20 13:00 | US_ITS ---
WS: [id number] THYROID ULTRASOUND HISTORY: Thyroid nodule COMPARISON: 07/25/2022 Right lobe: 1.8 cm x 1.5 cm x 4.3 cm (w x ap x l). Volume: 6.2 cm3. Coarse echotexture throughout the entire gland with only mild enlargement. The lobe has decreased in size since the prior study. Hypoechoic nodule is not identified today. The increased vascularity has decreased. There is less mass effect upon the strap muscles. Left lobe: 1.9 cm x 2.1 cm x 5.4 cm (w x ap x l). Volume: 11.0 cm3. Mildly enlarged heterogeneous nodular appearance of the gland. The gland is still mildly hypervascula r but improved since the prior study. No discrete mass. Less mass effect upon the strap muscle. Isthmus: 0.7 cm. US/US thyroid [id number] IMPRESSION: 1. 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 The gland has decreased in size with decrease in vascularity since 07/25/20 20. 2. No discrete mass identified today.
== END 2022-02-20 11:47 | disposition home or self-care (01) ==
PROVIDERS: PCP Family Medicine; Visit Provider Family Medicine
DX: E04.1 Nontoxic single thyroid nodule (principal)
CPT/HCPCS: 76536; 76770

== ENCOUNTER 2022-03-02 06:00 | Outpatient (RCR) | payer OTHER, SELFPAY | END 2022-03-08 23:59 | disposition home or self-care (01) | LOC: SPT 06:00 | PROVIDERS: PCP Family Medicine; Referring Provider Family Medicine; Visit Provider Family Medicine | DX: M54.50 Low back pain, unspecified (principal) | CPT/HCPCS: 97110; 97161 ==

== ENCOUNTER 2022-03-09 06:00 | Outpatient (RCR) | payer OTHER, SELFPAY | END 2022-04-08 23:59 | disposition home or self-care (01) | LOC: SPT 06:00 | PROVIDERS: PCP Family Medicine; Visit Provider Family Medicine | DX: M54.50 Low back pain, unspecified (principal) | CPT/HCPCS: 97110 ==

== ENCOUNTER 2022-03-11 17:29 | Outpatient (CLI) | payer OTHER, SELFPAY ==
[2022-03-11 18:27] LABS: Thyroid Stimulating Hormone 1.44 uIU/mL (0.27-4.20)
[2022-03-11 22:02] LABS: Free T4 Free Thyroxine 0.78 ng/dL (0.82-1.77)
[2022-03-13 10:53] LABS: T3 Total 118 ng/dL (76-181)
[2022-03-13 15:49] LABS: Thyroglobulin AB 14 IU/mL (< or = 1); Thyroid Peroxidase Antobodies 588 IU/mL (<9)
== END 2022-03-11 17:30 | disposition home or self-care (01) ==
LOC: LAB 17:30
PROVIDERS: PCP Family Medicine; Visit Provider Internal Medicine
DX: E03.8 Other specified hypothyroidism (principal); E06.3 Autoimmune thyroiditis
CPT/HCPCS: 84439; 84443; 84480; 86376; 86800

== ENCOUNTER 2022-04-02 20:00 | Outpatient (CLI) | payer OTHER, SELFPAY | END 2022-04-02 20:01 | disposition home or self-care (01) | LOC: SLEEP 04-03 05:35 | PROVIDERS: PCP Family Medicine; Visit Provider Family Medicine | DX: G47.30 Sleep apnea, unspecified (principal) | CPT/HCPCS: 95811 ==

== ENCOUNTER → 2022-04-06 08:50 | Outpatient (BNVA) | payer OTHER, SELFPAY | PROVIDERS: PCP Family Medicine; Visit Provider Podiatrist Foot & Ankle Surgery | DX: M76.62 Achilles tendinitis, left leg (principal) | CPT/HCPCS: 73630 ==

== ENCOUNTER 2022-04-09 06:00 | Outpatient (RCR) | payer OTHER, SELFPAY | END 2022-05-08 23:59 | disposition home or self-care (01) | LOC: SPT 06:00 | PROVIDERS: PCP Family Medicine; Visit Provider Family Medicine | DX: M54.50 Low back pain, unspecified (principal) | CPT/HCPCS: 97110 ==

== ENCOUNTER → 2022-04-30 08:31 | Outpatient (BNVA) | payer OTHER, SELFPAY | PROVIDERS: PCP Family Medicine; Visit Provider Family Medicine | DX: E03.9 Hypothyroidism, unspecified (principal); E87.6 Hypokalemia; R79.89 Other specified abnormal findings of blood chemistry | CPT/HCPCS: 80053; 84439; 84443 ==

== ENCOUNTER 2022-05-04 15:07 | Outpatient (CLI) | payer OTHER, SELFPAY | END 2022-05-04 15:08 | disposition home or self-care (01) | LOC: SPT 15:08 | PROVIDERS: PCP Family Medicine; Visit Provider Podiatrist Foot & Ankle Surgery | DX: Z46.89 Encounter for fitting and adjustment of other specified devices (principal); M76.62 Achilles tendinitis, left leg; M79.672 Pain in left foot | CPT/HCPCS: L3332; L4397 ==

== ENCOUNTER 2022-05-29 06:00 | Outpatient (RCR) | payer OTHER, SELFPAY | END 2022-06-08 23:59 | disposition home or self-care (01) | LOC: SPT 06:00 | PROVIDERS: PCP Family Medicine; Visit Provider Podiatrist Foot & Ankle Surgery | DX: M76.62 Achilles tendinitis, left leg (principal) | CPT/HCPCS: 97033; 97110; 97140; 97161 ==

== ENCOUNTER 2022-06-09 06:00 | Outpatient (RCR) | payer OTHER, SELFPAY | END 2022-06-30 16:50 | disposition home or self-care (01) | LOC: SPT 06:00 | PROVIDERS: PCP Family Medicine; Visit Provider Podiatrist Foot & Ankle Surgery | DX: M76.62 Achilles tendinitis, left leg (principal) | CPT/HCPCS: 97033; 97110; 97140 ==

== ENCOUNTER → 2022-07-20 09:25 | Outpatient (BNVA) | payer OTHER, SELFPAY | PROVIDERS: PCP Family Medicine; Visit Provider Family Medicine | DX: R73.03 Prediabetes (principal); E78.2 Mixed hyperlipidemia; I10 Essential (primary) hypertension; E03.9 Hypothyroidism, unspecified | CPT/HCPCS: 80048; 80061; 83036; 84439; 84443 ==

== ENCOUNTER → 2022-10-19 09:24 | Outpatient (BNVA) | payer OTHER, SELFPAY | PROVIDERS: PCP Family Medicine; Visit Provider Internal Medicine | DX: E03.8 Other specified hypothyroidism (principal); E03.9 Hypothyroidism, unspecified; E06.3 Autoimmune thyroiditis | CPT/HCPCS: 84443; 84480 ==

== ENCOUNTER → 2023-01-18 08:44 | Outpatient (BNVA) | payer OTHER, SELFPAY | PROVIDERS: PCP Family Medicine; Visit Provider Internal Medicine | DX: E03.8 Other specified hypothyroidism (principal); E06.3 Autoimmune thyroiditis | CPT/HCPCS: 84439; 84443; 84480 ==

== ENCOUNTER 2023-04-07 17:24 | Outpatient (CLI) | payer OTHER, SELFPAY ==
[2023-04-07 18:18] LABS: Thyroid Stimulating Hormone 0.11 uIU/mL (0.27-4.20)
[2023-04-07 21:00] LABS: Free T4 Free Thyroxine 1.06 ng/dL (0.82-1.77)
[2023-04-09 10:20] LABS: T3 Total 158 ng/dL (76-181)
== END 2023-04-07 17:25 | disposition home or self-care (01) ==
LOC: LAB 17:26
PROVIDERS: PCP Family Medicine; Visit Provider Internal Medicine
DX: E03.8 Other specified hypothyroidism (principal); E06.3 Autoimmune thyroiditis
CPT/HCPCS: 84439; 84443; 84480

== ENCOUNTER 2024-02-18 12:53 | Outpatient (CLI) | payer OTHER, SELFPAY ==
[2024-02-18 13:16] LABS: Basophils % 0.5 %; Eosinophils # 0.1 10^3/uL (0.0-0.8); Eosinophils % 1.6 %; Hematocrit 34.9 % (36-47); Lymphocytes # 2.9 10^3/uL (0.8-4.8); Lymphocytes % 35.4 %; Mean Corpuscular Hemoglobin 27.4 pg (27-33); Mean Corpuscular Volume 83.1 fl (85-98); Monocytes # 0.5 10^3/uL (0.2-0.9); Monocytes % 5.5 %; Neutrophils # 4.63 10^3/uL (1.8-7.7); Neutrophils % 56.9 %; Nucleated Red Blood Cells % 0 %; Platelet Count 260 10^3/cmm (157-399); Red Cell Distribution Width 13.8 % (12.1-15.1); White Blood Count 8.14 10^3/uL (3.29-11.43)
[2024-02-18 13:52] LABS: 25 Hydroxy Vitamin D 32 ng/mL (30-100); Alanine Aminotransferase 31 U/L (0-33); Albumin Level 4.2 g/dL (3.5-5.2); Alkaline Phosphatase 122 U/L (35-105); Anion Gap 15.1 (5-19); Aspartate Amino Transferase 32 U/L (0-32); Blood Urea Nitrogen 22 mg/dL (6-20); Calcium 9.7 mg/dL (8.5-10.5); Carbon Dioxide 27 mmol/L (22-29); Chloride 103 mmol/L (98-107); Chol HDL Ratio 4.09 mg/dL (0.0-4.40); Cholesterol 237 mg/dL (0-200); Globulin 3.1 g/dL (1.3-4.6); Glomerular Filtration Rate 64.1 mL/min (90-130); Glucose 129 mg/dL (65-115); HDL Cholesterol 58 mg/dL (60-100); LDL Cholesterol Calculated 151 mg/dL (50-129); Osmolality Calculated 297 mOsm/kg (285-295); Potassium 4.1 mmol/L (3.5-5.1); Sodium 141 mmol/L (136-145); Thyroid Stimulating Hormone 0.25 uIU/mL (0.27-4.20); Total Bilirubin 0.5 mg/dL (0.15-1.2); Total Protein 7.3 g/dL (6.6-8.7); Triglycerides 139 mg/dL (0-150); Vitamin B12 711 pg/mL (232-1245)
[2024-02-18 14:28] LABS: Estmated Average Glucose 117; Hemoglobin A1C 5.7 % (4.0-6.0)
== END 2024-02-18 12:54 | disposition home or self-care (01) ==
PROVIDERS: PCP Family Medicine; Visit Provider Family Medicine
DX: E55.9 Vitamin D deficiency, unspecified (principal); R79.89 Other specified abnormal findings of blood chemistry; E78.2 Mixed hyperlipidemia; I10 Essential (primary) hypertension
CPT/HCPCS: 36415; 80053; 80061; 82306; 82607; 83036; 84439; 84443; 85025

== ENCOUNTER → 2024-09-25 10:24 | Outpatient (BNVA) | payer OTHER, SELFPAY | PROVIDERS: PCP Family Medicine; Visit Provider Family Medicine | DX: R05.9 Cough, unspecified (principal); J02.9 Acute pharyngitis, unspecified | CPT/HCPCS: 87400; 87426 ==

== ENCOUNTER → 2025-02-05 09:30 | Outpatient (BNVA) | payer OTHER, SELFPAY | PROVIDERS: PCP Family Medicine; Visit Provider Family Medicine | DX: I10 Essential (primary) hypertension (principal); E78.2 Mixed hyperlipidemia; E03.9 Hypothyroidism, unspecified; R73.03 Prediabetes; R79.89 Other specified abnormal findings of blood chemistry | CPT/HCPCS: 80053; 80061; 82306; 83036; 84439; 84443; 85027 ==

== ENCOUNTER 2025-05-26 20:20 | Emergency (ER) | payer OTHER, SELFPAY ==
--- NOTE | 2025-05-26 20:21 | ECG_ITS ---
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 Measurements Intervals [place] Rate: 143 P: 0 RI: 0 QRS: -19 QRSD: 91 T: 53 QT: 281 QTc: 435 Interpretive Statements ATRIAL FIBRILLATION WITH RAPID VENTRICULAR RESPONSE NONSPECIFIC ST & T-WAVE ABNORMALITY ABNORMAL RHYTHM ECG Compared to ECG 01/14/2022 23:42:35 T-wave abnormality now present Sinus rhythm no longer present Electronically Signed On 05-29-2025 19:32:24 CDT by Radha Lozoya M.D. [id number]
--- NOTE | 2025-05-26 20:21 | XRR_ITS ---
PROCEDURE INFORMATION: Exam: XR Chest Exam date and time: 05/26/2025 8:33 PM Age: 60 years old Clinical indication: Pain; Chest pressure; Additional info: Cp TECHNIQUE: Imaging protocol: Radiologic exam of the chest. Views: 1 view. COMPARISON: CR XR chest 1V portable [id number] 01/14/2022 8:37 PM FINDINGS: Lungs: Unremarkable. No consolidation. Pleural spaces: Unremarkable. No pleural effusion. No pneumothorax. Heart/Mediastinum: Unremarkable. No cardiomegaly. Bones/joints: Unremarkable. XR/XR chest 1V portable [id number] IMPRESSION: No acute findings.
[2025-05-26 20:22] VITALS: BP 149/93; PULSE 119; RESP 18; TEMP 36.7; O2SAT 100; BMI 33.2
--- OUTSIDE RECORDS SUMMARY | 2025-05-26 20:25 | XMS_ITS | Clinical Summary ---
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 90 Tablet 0 12/25/2015 Active oxyCODONE-acetam inophen (PERCOCET) 5-325 mg tablet Take 1 Tablet by mouth every 4 hours as needed for Pain, Mild or Pain, Moderate. Max Daily Amount: 6 Tablet 60 Tablet 0 12/25/2015 Active acidophillus citrus pectin 25 million cell/100 mg (LACTINEX) 25 million cell -100 mg Tablet Take 2 Tablet by mouth 3 times daily with meals. 12/03/2015 Active tiZANidine (ZANAFLEX) 4 mg Capsule Take 4 mg by mouth every 8 hours as needed for Spasm. 10/29/2015 Active calcium carb/mag/vitamin D3 (CALCIUM CARB-VIT D3-MAGNESIUM ORAL) Take by mouth. 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 12/03/2015 Active multivitamin (DAILY-YVES) tablet Take 1 Tablet by mouth daily. 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 Gender Identity Not on file Sexual Orientation Not on file Last Filed Vital Signs Vital Sign Reading Time Taken Comments Blood Pressure 142/75 02/19/2017 3:31 PM CDT Pulse 80 02/19/2017 1:05 PM CDT Temperature 37.1 C (98.7 F) 02/19/2017 3:31 PM CDT Respiratory Rate 16 02/19/2017 3:31 PM CDT Oxygen Saturation - - Inhaled Oxygen Concentration - - Weight 111.1 kg (245 lb) 02/19/2017 1:05 PM CDT Height 185.4 cm (6' 1 ) 02/19/2017 1:05 PM CDT Body Mass Index 32.32 02/19/2017 1:05 PM CDT Plan of Treatment Health Maintenance Due Date Last Done Comments HPV/Cotest (21-29) 1985 CERVICAL CANCER SCREENING 1994 HPV/Cotest (30-65) 1994 PAP SMEAR 1994 BREAST CANCER SCREENING 2004 COLORECTAL SCREENING 2009 Colorectal Cancer Screening 2009 FIT-DNA Q 3 years 2009 FIT/FOBT Q 1 year 2009 Flex Sig/CT Colonography Q 5 years 2009 ZOSTER VACCINE (1 of 2) 2014 INFLUENZA VACCINE (#1) 2025 DTAP/TDAP/TD VACCINES (2 - Td or Tdap) 02/19/2027 RSV VACCINE (60+ or ) (1 - 1-dose 75+ series) 2039
--- OUTSIDE RECORDS SUMMARY | 2025-05-26 20:25 | XMS_ITS | Clinical Summary ---
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 Active acidophillus citrus pectin 25 million cell/100 mg (LACTINEX) 25 million cell -100 mg Tablet Take 2 Tablet by mouth 3 times daily with meals. Active multivitamin (DAILY-YVES) tablet Take 1 Tablet by mouth daily. Active CALCIUM CARB/MAG/VITAMIN D3 (CALCIUM CARB-VIT D3-MAGNESIUM ORAL) Take by mouth. Active oxyCODONE-acetam inophen (PERCOCET) 5-325 mg tablet Take 1 Tablet by mouth every 4 hours as needed for Pain, Mild or Pain, Moderate. Max Daily Amount: 6 Tablet 60 Tablet 0 12/25/2015 Active traMADol (ULTRAM) 50 mg tablet Take 2 Tablet (100 mg) by mouth every 6 hours as needed for Pain. 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 Advance Directives For more information, please contact: [phone] * Full Code (Latest Code Status on File) Date Activated Date Inactivated Comments 10/04/2015 12:12 PM 10/09/2015 3:39 PM
--- NOTE | 2025-05-26 20:38 | ED_ITS ---
HPI - SOB/Dyspnea 2 General: Chief Complaint: Shortness of Breath/Dyspnea Stated Complaint: CP SOB high BP Time Seen by Provider: 05/26/25 20:33 Source: patient Mode of arrival: ambulatory Limitations: no limitations History of Present Illness: HPI Narrative: 60-year-old female states that throughou t the day today she has been having palpitations along with increased heart rate. She and she has had some slight chest pressure with the palpitations along with some dyspnea. Patient denies any cough or fever. She denies any vomiting or diarrhea. Patient is in A-fib with RVR here no history of A-fib. Associated symptoms: Reports palpitations Related Data Home Medications ?Medication ?Instructions ?Recorded ?Confirmed aspirin 81 mg chewable tablet 81 mg PO DAILY 04/01/21 02/05/25 cholecalciferol (vitamin D3) 100 100 mcg PO DAILY 02/0602/05/25 mcg (4,000 unit) tablet Previous Rx's ?Medication ?Instructions ?Recorded amlodipine 5 mg tablet See Rx Instructions .Route 0 02/05/25 .COMPLEX #90 tabs clonidine HCl 0.1 mg tablet See Rx Instructions .Route 02/05/25 .COMPLEX #270 tabs hydrochlorothiazide 25 mg tablet See Rx Instructions . Route 02/05/25 .COMPLEX #180 tabs losartan 50 mg tablet See Rx Instructions .Route 0 02/05/25 .COMPLEX #180 tabs thyroid (pork) 120 mg tablet (SIX HORSE HITCH DRIVER See Rx Instructions . Route 02/05/25 Thyroid) .COMPLEX #90 tabs aspirin 81 mg capsule 81 mg PO DAILY #30 caps 05/09 04/02 atenolol 50 mg tablet 50 mg PO DAILY #30 tabs 05/09 04/02 Allergies Allergy/AdvReac Type Severity Reaction Status Date / Time No Known Allergies Allergy Verified 02/05/25 08:53 Review of Systems 2 Card: Reports: palpitations Resp: Reports: dyspnea PFSH ED 2 PFSH: Medical History (Updated 05/26/25 @ 21:50 by Suzanne Muñoz MD) Left ankle pain Hyperlipemia Other injury of muscle(s) and tendon(s) of anterior muscle group at lower leg level, left leg, initial encounter fall, Right lower leg injury 10/03/2021 Hypertension Hypothyroidism Social History Smoking and tobacco/nicotine status: never used tobacco/nicotine Alcohol intake: former Female Reproductive History: Spontaneous abortions: No Physical Exam 2 Const: COMMON NORMALS: no acute distress, patient oriented x3 and healthy appearing HENMT: COMMON NORMALS: normocephalic and atraumatic HEAD & SCALP: n ormocephalic and atraumatic Eye: COMMON NORMALS: conjunctivae normal CONJUNCTIVA: Yes conjunctivae normal Neck/C-Spine: COMMON NORMALS: full ROM and supple Chest: COMMONS NORMALS: normal inspection of the chest Resp: COMMON NORMALS: normal respiratory effort, No retractions, No use of accessory muscles and clear to auscultation bilaterally AUSCULTATION: clear to auscultation bilaterally Cardio: COMMON NORMALS: No murmurs present (Cardio) RATE: tachycardic R HYTHM: abnormal rhythm irregularly irregular Extremity: COMMON NORMALS: normal to inspection and full ROM Neuro: COMMON NORMALS: patient oriented x3, moves all extremities and no focal motor deficits Psych: COMMON NORMALS: mental status grossly normal, Normal thought process present and cooperative THOUGHT PROCESS: Normal thought process present Skin: COMMON NORMALS: no rashes or lesions noted and no wounds GENERAL SKIN EXAM: no rashes or lesions noted Course 2 Vital Signs: Vital signs: Vital Signs Temperature 98.0 F 05/26/25 20:22 Pulse Rate 119 H 05/26/25 20:22 Respiratory Rate 18 05/26/25 20:22 Blood Pressure 149/93 05/26/25 20:22 Pulse Oximetry 100 05/26/25 20:22 Oxygen Delivery Me thod Room Air 05/26/25 20:22 MDM - SOB/Dyspnea Medical Decision Making Patient presents here with atrial fibs. While patient was here she had converted herself did not receive any medications here. Her symptoms have since completely resolved. Patient's D-dimer age-adjusted is negative she has no shortness of breath currently no signs of pulm embolism. Patient has no signs ACS initial troponin is normal her symptoms likely from her A-fib. I did speak to bet taker Dr. Green who recommended starting patient on aspirin 81 mg a day will increase atenolol to 50 mg. She has a CHADS2 score 2. Repeat EKG here showed normal sinus rhythm heart rate in the 70s. Chest x-ray showed no acute abnormalities I did inform patient of all of her results and the plan and she is to follow-up with cardiology and we will put a cardiology referral and she is return if worsening she understands agrees to plan Medical Records I reviewed the patient's medical records. Lab Data I reviewed the patient's lab results. 05/26/25 20:39 05/26/25 20:39 Labs/Radiology: Radiology Impressions Chest X-Ray 05/26/25 20:21 IMPRESSION: No acute findings. Laboratory Results WBC 11.80 10^3/uL (3.29-11.43) H 05/26/25 20:39 RBC 4.78 10^6/uL (3.85-5.65) 05/26/25 20:39 Hgb 13.00 g/dL (11.27-16.99) 05/26/25 20:39 Hct 38.5 % (36-47) 05/26/25 20:39 MCV 80.5 fl (85-98) L 05/26/25 20:39 MCH 27.2 pg (27-33) 05/26/25 20:39 MCHC 33.8 g/dL (30-55) 05/26/25 20:39 RDW 14.1 % (12.1-15.1) 05/26/25 20:39 Plt Count 282 10^3/cmm (157-399) 05/26/25 20:39 MPV 10.8 fL (7.4-10.4) H 05/26/25 20:39 Neut % (Auto) 71.1 % 05/26/25 20:39 Lymph % (Auto) 22.2 % 05/26/25 20:39 [place] % (Auto) 5.2 % 05/26/25 20:39 Eos % (Auto) 0.9 % 05/26/25 20:39 Baso % (Auto) 0.3 % 05/26/25 20:39 Neut # (Auto) 8.39 10^3/uL (1.8-7.7) H 05/26/25 20:39 Lymph # (Auto) 2.6 10^3/uL (0.8-4.8) 05/26/25 20:39 [place] # (Auto) 0.6 10^3/uL (0.2-0.9) 05/26/25 20:39 Eos # (Auto) 0.1 10^3/uL (0.0-0.8) 05/26/25 20:39 Baso # (Auto) 0.0 10^3/uL (0.0-0.1) 05/26/25 20:39 Nucleated RBC % (auto) 0 % 05/26/25 20: Nucleated RBCs # 0.0 /100WBC 05/26/25 20:39 PT 12.30 SECONDS (12.1-14.9) 05/26/25 20:39 INR 0.85 (0.8-1.2) 05/26/25 20:39 D-Dimer 0.61 ug/mLFEU (0-0.59) H 05/26/25 20:39 Sodium 142 mmol/L (136-145) 05/26/25 20:39 Potassium 3.5 mmol/L (3.5-5.1) 05/26/25 20:39 Chloride 101 mmol/L (98-107) 05/26/25 20:39 Carbon Dioxide 25 mmol/L (22-29) 05/26/25 20:39 Anion Gap 19.5 (5-19) H 05/26/25 20:39 BUN 25 mg/dL (8-23) H 05/26/25 20:39 Creatinine 0.9 mg/dL (0.5-0.9) 05/26/25 20:39 GFR Calculation 63.7 mL/min (90-130) L 05/26/25 20: Glucose 124 mg/dL (65-115) H 05/26/25 20:39 Calculated Osmolality 300 mOsm/kg (285-295) H 05/26/25 20:39 Calcium 10.1 mg/dL (8.5-10.5) 05/26/25 20:39 Total Bilirubin 0.4 mg/dL (0.15-1.2) 05/26/25 20:39 AST 26 U/L (0-32) 05/26/25 20:39 ALT 36 U/L (0-33) H 05/26/25 20:39 Alkaline Phosphatase 154 U/L (35-105) H 05/26/25 20:39 Troponin T Baseline 10 ng/L (0-10) 05/26/25 20:39 NT-Pro-B Natriuret Pep 579 pg/mL (0-125) H 05/26/25 20:39 Total Protein 7.4 g/dL (6.6-8.7) 05/26/25 20:39 Albumin 4.5 g/dL (3.5-5.2) 05/26/25 20:39 Globulin 2.9 g/dL (1.3-4.6) 05/26/25 20:39 Lipase 25 U/L (13-60) 05/26/25 20:39 All radiology interpretation(s) finalized by discharge EKG Data EKG 1: I personally reviewed and interpreted this EKG as follows: EKG Interpretation Date: 05/26/25 EKG interpretation time: 20:26 Interpretation: afib with rvr hr [address] elevation qrs 91 qtc 364 Discharge Plan Discharge Patient Disposition: Home Clinical Impression: Atrial fibrillation Condition: Stable Prescriptions: New aspirin 81 mg capsule 81 mg PO DAILY Qty: 30 0RF atenolol 50 mg tablet 50 mg PO DAILY Qty: 30 0RF Discontinued atenolol 25 mg tablet See Rx Instructions .ROUTE .COMPLEX Qty: 90 3RF Dose Instruction: TAKE 1 TABLET BY MOUTH EVERY DAY Rx Instructions: TAKE 1 TABLET BY MOUTH EVERY DAY No Action aspirin 81 mg tablet,chewable 81 mg PO DAILY cholecalciferol (vitamin D3) 100 mcg (4,000 unit) tablet 100 mcg PO DAILY amlodipine 5 mg tablet See Rx Instructions .ROUTE .COMPLEX Qty: 90 3RF Dose Instruction: TAKE 1 TABLET BY MOUTH EVERY DAY Rx Instructions: TAKE 1 TABLET BY MOUTH EVERY DAY clonidine HCl 0.1 mg tablet See Rx Instructions .ROUTE .COMPLEX Qty: 270 3RF Dose Instruction: TAKE 2 TABLETS BY MOUTH THREE TIMES DAILY Rx Instructions: Take one tab in am and 2 tab in pm. hydrochlorothiazide 25 mg tablet See Rx Instructions .ROUTE .COMPLEX Qty: 180 3RF Dose Instruction: TAKE 1 TABLET BY MOUTH TWICE DAILY Rx Instructions: TAKE 1 TABLET BY MOUTH TWICE DAILY losartan 50 mg tablet See Rx Instructions .ROUTE .COMPLEX Qty: 180 3RF Dose Instruction: TAKE 1 TABLET BY MOUTH TWICE DAILY Rx Instructions: TAKE 1 TABLET BY MOUTH TWICE DAILY. thyroid (pork) [SIX HORSE HITCH DRIVER Thyroid] 120 mg tablet See Rx Instructions .ROUTE .COMPLEX Qty: 90 3RF Dose Instruction: TAKE 1 TABLET BY MOUTH EVERY DAY Rx Instructions: TAKE 1 TABLET BY MOUTH EVERY DAY Discharge Orders: Discharge ED (Routine); Ordered 05/26/25 Ordered By: Suzanne Muñoz Referrals: Francis Rizo, [Primary Care Provider, Family Practice] - 4-7 days Discharge Diet: Advance as tolerated Discharge Activity: Resume usual activity Patient Instructions: A-fib (Atrial Fibrillation) (ED) Print Language: Hungarian Coding Level of Care Code ED Slime Plant Operator for Shawn Pillai
[2025-05-26 20:48] LABS: Hematocrit 38.5 % (36-47); Hemoglobin 13.00 g/dL (11.27-16.99); Mean Corpuscular HGB Conc 33.8 g/dL (30-55); Mean Corpuscular Hemoglobin 27.2 pg (27-33); Mean Corpuscular Volume 80.5 fl (85-98); Nucleated Red Blood Cells % 0 %; Platelet Count 282 10^3/cmm (157-399); Red Blood Count 4.78 10^6/uL (3.85-5.65); White Blood Count 11.80 10^3/uL (3.29-11.43)
[2025-05-26 20:58] LABS: INR 0.85 (0.8-1.2); Prothrombin Time 12.30 SECONDS (12.1-14.9)
[2025-05-26 21:07] LABS: Troponin(5th) Baseline 10 ng/L (0-10)
[2025-05-26 21:14] LABS: Alanine Aminotransferase 36 U/L (0-33); Albumin Level 4.5 g/dL (3.5-5.2); Alkaline Phosphatase 154 U/L (35-105); Anion Gap 19.5 (5-19); Aspartate Amino Transferase 26 U/L (0-32); Blood Urea Nitrogen 25 mg/dL (8-23); Calcium 10.1 mg/dL (8.5-10.5); Carbon Dioxide 25 mmol/L (22-29); Chloride 101 mmol/L (98-107); Creatinine Clr Calc Pharmacy 88.7686; Globulin 2.9 g/dL (1.3-4.6); Glucose 124 mg/dL (65-115); Lipase 25 U/L (13-60); NT Pro B Type Natriuretic Pept 579 pg/mL (0-125); Osmolality Calculated 300 mOsm/kg (285-295); Potassium 3.5 mmol/L (3.5-5.1); Sodium 142 mmol/L (136-145); Total Protein 7.4 g/dL (6.6-8.7)
--- NOTE | 2025-05-26 22:35 | ECG_ITS ---
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 Measurements Intervals [place] Rate: P: 0 HI: 0 QRS: 0 QRSD: 0 T: 0 QT: 0 QTc: 0 Interpretive Statements Normal Sinus Rhythm ATYPICAL ECG WARNING: DATA QUALITY MAY AFFECT INTERPRETATION Compared to ECG 01/14/2022 23:42:35 Sinus rhythm no longer present Electronically Signed On 05-29-2025 19:47:46 CDT by Radha Lozoya M.D. [email or web address]
[2025-05-26 22:41] VITALS: BP 132/63; PULSE 52; RESP 20; O2SAT 98
[2025-05-26 22:44] VITALS: BP 132/63; PULSE 52; RESP 20; O2SAT 98
--- NOTE | 2025-05-28 08:15 | DCPLANNER ---
messaged heart care for er f/u
== END 2025-05-26 22:45 | disposition home or self-care (01) ==
PROVIDERS: Emergency Provider Emergency Medicine; PCP Family Medicine
DX: I48.91 Unspecified atrial fibrillation (principal); Z79.82 Long term (current) use of aspirin; E78.5 Hyperlipidemia, unspecified; I10 Essential (primary) hypertension
CPT/HCPCS: 71045; 80053; 83690; 83880; 84484; 85025; 85378; 85610; 93005; 99285

== ENCOUNTER → 2025-06-04 10:00 | Outpatient (BNVA) | payer OTHER, SELFPAY | PROVIDERS: PCP Family Medicine; Visit Provider Family Medicine | DX: E03.9 Hypothyroidism, unspecified (principal); I48.91 Unspecified atrial fibrillation | CPT/HCPCS: 84439; 84443; 84481 ==

== ENCOUNTER 2025-06-05 06:37 | Emergency (ER) | payer OTHER, SELFPAY ==
[2025-06-05 06:40] VITALS: BP 192/77; PULSE 75; RESP 17; TEMP 36.6; O2SAT 100; BMI 33.5
--- OUTSIDE RECORDS SUMMARY | 2025-06-05 06:41 | XMS_ITS | Clinical Summary ---
Author Organization [facility] Address [address] Attn: Epic Prelude ADT MILO GUZMÁN [id number] Care Team Providers Care Stylist Assistant Name Role Phone Unavailable Primary Care Provider [...] tablet Take 25 mcg by mouth daily delivery architect. 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
--- OUTSIDE RECORDS SUMMARY | 2025-06-05 06:41 | XMS_ITS | Clinical Summary ---
Author Organization [facility] Address [address] [place] [address] Phone Care Team Providers Care Veterinary Inspector Name Role Phone Unavailable Primary Care Provider Unavailabl e Allergies No known active allergies Medications tiZANidine (ZANAFLEX) 4 mg Capsule Take 4 mg by mouth every 8 hours as needed for Spasm. Active levothyroxine 25 mcg tablet Take 25 mcg by mouth daily tap grinder. 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 PPO [facility] Advance Directives For more information, please contact: [phone] * Full Code (Latest Code Status on File) Date Activated Date Inactivated Comments 10/04/2015 12:12 PM 10/09/2015 3:39 PM
--- NOTE | 2025-06-05 06:44 | ECG_ITS ---
[facility] Test Date: 2025-06-05 Pat Name: Ana Laura Robles Department: Room: Gender: Female Studio Control Operator: : 1965 Requested By: Alcon Rabago Order Number: [id number] Marina MD: Carlos Green M.D. Measurements Intervals [place] Rate: 66 P: 48 WV: 166 QRS: -18 QRSD: 106 T: 24 QT: 410 QTc: 431 Interpretive Statements SINUS RHYTHM Compared to ECG 05/26/2025 21:00:41 No significant changes Electronically Signed On 06-07-2025 08:48:47 CDT by Carlos Green M.D. [id number]
--- NOTE | 2025-06-05 06:44 | XR_ITS ---
WS: [id number] Exam: XR chest 1V portable [id number] Date/Time of Exam: 06/05/2025 7:00 AM Reason For Exam: chest pain Comparison 05/26/2025. The lungs are fully expanded and clear. Normal cardiomediastinal silhouette and regional bony elements. No pleural effusion. XR/XR chest 1V portable [id number] IMPRESSION: 1. Negative chest.
--- NOTE | 2025-06-05 06:44 | ECG_ITS ---
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
--- NOTE | 2025-06-05 06:48 | W.ED.GENADLT ---
HPI - General Adult General: Chief complaint: General Medical Stated complaint: Jaw hurt headach left side numbess and back pain Time Seen by Provider: 06/05/25 06:43 History of Present Illness: 60-year-old female presents emerged from complaining of left-sided jaw discomfort pain radiating to her back. She has no known history of artery disease. She has a history of atrial fibrillation and hypertension. She recently had adjustments to her medications based on her atrial fibrillation. She is on clonidine. She has not taken any of her blood pressure medications today overnight she just generally did not feel well had increasing discomfort into her back and into her jaw. No zara chest pain she has felt slightly short of breath no abdominal pain. She has no history of PE. She has not noticed any rapid heart rates through this evening or this morning. 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 She had noticed previously that her blood pressures have been low, systolics as low as 88 mmHg. Blood pressure time in [facility] is 192/77. Associated symptoms: Reports dyspnea and malaise; Deny chest pain or rash Related Data Home Medications ?Medication ?Instructions ?Recorded ?Confirmed cholecalciferol (vitamin D3) 100 100 mcg PO DAILY 02/23/24 06/05/25 mcg (4,000 unit) tablet amlodipine 5 mg tablet 5 mg PO DAILY 06/05/25 06/05/25 aspirin 81 mg tablet,delayed 81 mg PO DAILY 06/05/25 06/05/25 release coQ10 (ubiquinol) 100 mg capsule 100 mg PO BID 06/05/25 06/05/25 losartan 50 mg tablet 50 mg PO BID 06/05/25 06/05/25 thyroid (pork) 120 mg tablet (REJECTED ITEMS CLERK 120 mg PO DAILY 06/05/25 06/05/25 Thyroid) Previous Rx's ?Medication ?Instructions ?Recorded atenolol 50 mg tablet 50 mg PO DAILY #90 tabs 06/04/25 Allergies Allergy/AdvReac Type Severity Reaction Status Date / Time No Known Allergies Allergy Verified 06/04/25 09:01 Review of Systems Const: Reports: malaise; Denies: fever(s) or chills Card: Denies: chest pain Resp: Reports: dyspnea GI: Denies: abdominal pain : Denies: dysuria, urinary frequency or urinary urgency Musc: Denies: neck pain or back pain Skin/Breast: Denies: rash PFSH ED PFSH: Medical History Left ankle pain Hyperlipemia Other injury of muscle(s) and tendon(s) of anterior muscle group at lower leg level, left leg, initial encounter fall, Right lower leg injury 10/03/2021 Hypertension Acquired hypothyroidism Social History Smoking and tobacco/nicotine status: never used tobacco/nicotine Alcohol intake: former Female Reproductive History: Spontaneous abortions: No Physical Exam Const: GENERAL APPEARANCE: cooperative ORIENTATION/CONSCIOUSNESS: Yes awake, Yes oriented to person, Yes oriented to place and Yes oriented to time HENMT: COMMON NORMALS: normocephalic, atraumatic and hearing grossly normal bilaterally HEAD & SCALP: normocephalic and atraumatic Resp: COMMON NORMALS: normal respiratory effort, No retractions, No use of accessory muscles and clear to auscultation bilaterally AUSCULTATION: clear to auscultation bilaterally Cardio: COMMON NORMALS: regular rate, regular rhythm and No murmurs present (Cardio) RATE: regular rate RHYTHM: regular rhythm GI: COMMON NORMALS: Soft to palpation and No hepatosplenomegaly present AUSCULTATION: Yes normoactive bowel sounds PALPATION: Yes Soft to palpation, No Tenderness to palpation present (GI), No Guarding due to palpation present (GI) and Yes No hepatosplenomegaly present Extremity: COMMON NORMALS: normal to inspection, capillary refill normal, no clubbing, cyanosis or edema, no calf tenderness and no pedal edema Neuro: SENSORIUM/ORIENTATION: Yes oriented to person, Yes oriented to place and Yes oriented to time Skin: COMMON NORMALS: no rashes or lesions noted GENERAL SKIN EXAM: no rashes or lesions noted Course Vital Signs: Vital signs: Vital Signs Temperature 97.9 F 06/05/25 06:40 Pulse Rate 56 L 06/05/25 09:41 Respiratory Rate 17 06/05/25 09:41 Blood Pressure 125/60 06/05/25 09:41 Pulse Oximetry 97 06/05/25 09:41 Oxygen Delivery Me thod Room Air 06/05/25 06:40 MDM - General Adult Medical Decision Making Labs imaging and EKG unremarkable reviewed with the patient. Will discharge patient home blood pressure is stable now recommend that she not take the clonidine or hydrochlorothiazide. She has follow-up appointments with cardiology later today and with her primary care doctor next week. Encouraged her to review medications. Lab Data 06/05/25 06:58 06/05/25 06:58 Radiology Impressions Chest X-Ray 06/05/25 06:44 IMPRESSION: 1. Negative chest. Laboratory Results WBC 10.00 10^3/uL (3.29-11.43) 06/05/25 06:58 RBC 4.32 10^6/uL (3.85-5.65) 06/05/25 06:58 Hgb 11.80 g/dL (11.27-16.99) 06/05/25 06:58 Hct 35.6 % (36-47) L 06/05/25 06:58 MCV 82.4 fl (85-98) L 06/05/25 06:58 MCH 27.3 pg (27-33) 06/05/25 06:58 MCHC 33.1 g/dL (30-55) 06/05/25 06:58 RDW 14.3 % (12.1-15.1) 06/05/25 06:58 Plt Count 256 10^3/cmm (157-399) 06/05/25 06:58 MPV 10.7 fL (7.4-10.4) H 06/05/25 06:58 Neut % (Auto) 67.5 % 06/05/25 06:58 Lymph % (Auto) 24.1 % 06/05/25 06:58 [place] % (Auto) 6.4 % 06/05/25 06:58 Eos % (Auto) 1.3 % 06/05/25 06:58 Baso % (Auto) 0.4 % 06/05/25 06:58 Neut # (Auto) 6.75 10^3/uL (1.8-7.7) 06/05/25 06:58 Lymph # (Auto) 2.4 10^3/uL (0.8-4.8) 06/05/25 06:58 [place] # (Auto) 0.6 10^3/uL (0.2-0.9) 06/05/25 06:58 Eos # (Auto) 0.1 10^3/uL (0.0-0.8) 06/05/25 06:58 Baso # (Auto) 0.0 10^3/uL (0.0-0.1) 06/05/25 06:58 Nucleated RBC % (auto) 0 % 06/05/25 06:58 Nucleated RBCs # 0.0 /100WBC 06/05/25 06:58 Sodium 137 mmol/L (136-145) 06/05/25 06:58 Potassium 3.7 mmol/L (3.5-5.1) 06/05/25 06:58 Chloride 96 mmol/L (98-107) L 06/05/25 06:58 Carbon Dioxide 24 mmol/L (22-29) 06/05/25 06:58 Anion Gap 20.7 (5-19) H 06/05/25 06:58 BUN 22 mg/dL (8-23) 06/05/25 06:58 Creatinine 1.0 mg/dL (0.5-0.9) H 06/05/25 06:58 GFR Calculation 56.4 mL/min (90-130) L 06/05/25 06:58 Glucose 119 mg/dL (65-115) H 06/05/25 06:58 Calculated Osmolality 288 mOsm/kg (285-295) 06/05/25 06:58 Calcium 9.5 mg/dL (8.5-10.5) 06/05/25 06:58 Total Bilirubin 0.4 mg/dL (0.15-1.2) 06/05/25 06:58 AST 21 U/L (0-32) 06/05/25 06:58 ALT 29 U/L (0-33) 06/05/25 06:58 Alkaline Phosphatase 164 U/L (35-105) H 06/05/25 06:58 Troponin T Baseline 9 ng/L (0-10) 06/05/25 06:58 Troponin T 120 Minute 8.62 ng/L (0-10) 06/05/25 08:25 Delta Troponin T -0.38 ABS# (0-10) L 06/05/25 08:25 Total Protein 6.9 g/dL (6.6-8.7) 06/05/25 06:58 Albumin 4.4 g/dL (3.5-5.2) 06/05/25 06:58 Globulin 2.5 g/dL (1.3-4.6) 06/05/25 06:58 All radiology interpretation(s) finalized by discharge EKG Data EKG 1: EKG interpretation date: 06/05/25 Prior EKG tracings: available for review Interpretation: EKG 06/05/2025 6:44 AM normal sinus rhythm rate of 66 parable 166 QTc [address] changes noted. Compared to EKG 05/26/2025 no significant changes Computer generated interpretation: Chest X-Ray 06/05/25 06:44 IMPRESSION: 1. Negative chest. EKG 2: Computer generated interpretation: Chest X-Ray 06/05/25 06:44 IMPRESSION: 1. Negative chest. Discharge Plan Discharge Patient Disposition: Home Clinical Impression: Hypertension, Transient atrial fibrillation Condition: Stable Prescriptions: Discontinued clonidine HCl 0.1 mg tablet 0.1 mg PO BID hydrochlorothiazide 25 mg tablet 25 mg PO BID No Action atenolol 50 mg tablet 50 mg PO DAILY Qty: 90 1RF cholecalciferol (vitamin D3) 100 mcg (4,000 unit) tablet 100 mcg PO DAILY aspirin [Aspir-81] 81 mg Tablet,Delayed Release (Dr/Ec) 81 mg PO DAILY coQ10 (ubiquinol) 100 mg Capsule 100 mg PO BID losartan 50 mg tablet 50 mg PO BID amlodipine 5 mg tablet 5 mg PO DAILY thyroid (pork) [REJECTED ITEMS CLERK Thyroid] 120 mg tablet 120 mg PO DAILY Discharge Orders: Discharge ED (Routine); Ordered 06/05/25 Ordered By: Alcon Villanueva Referrals: Francis Rizo DO [Primary Care Provider, [facility]] Discharge Diet: Usual diet Discharge Activity: Resume usual activity Patient Instructions: Opioid Safety, Pain Management, Patient Portal & Gato Instructions Activity Restrictions/Additional Instructions: Thank you for choosing [facility] for your healthcare needs today. It is very important that you follow up as instructed or that you return to the Emergency Department should you have concerns or if your condition changes or worsens in any way. Emergency department visits are focused on emergent conditions, in some cases you may require further evaluation on an outpatient basis. You were seen in the emergency room with complaints of elevated blood pressure and generally not feeling well. Your cardiac enzymes normal EKG does not show any acute changes. Recommend stopping clonidine and hydrochlorothiazide. Follow-up with cardiology as scheduled and follow-up with Dr. Rizo within the next week. (Please note that included in your discharge packet is information concerning opioid safety and pain management. This information is given to all patients were discharged from the ER regardless of their discharge diagnosis or the medicines they usually take or are prescribed.) Print Language: Romansh Coding Level of Care Code ED Web Application Developer for Shawn Pillai
[2025-06-05 07:02] LABS: Hematocrit 35.6 % (36-47); Hemoglobin 11.80 g/dL (11.27-16.99); Mean Corpuscular HGB Conc 33.1 g/dL (30-55); Mean Corpuscular Hemoglobin 27.3 pg (27-33); Mean Corpuscular Volume 82.4 fl (85-98); Nucleated Red Blood Cells % 0 %; Platelet Count 256 10^3/cmm (157-399); Red Blood Count 4.32 10^6/uL (3.85-5.65); White Blood Count 10.00 10^3/uL (3.29-11.43)
[2025-06-05 07:20] VITALS: BP 145/75
[2025-06-05 07:23] LABS: Alanine Aminotransferase 29 U/L (0-33); Albumin Level 4.4 g/dL (3.5-5.2); Alkaline Phosphatase 164 U/L (35-105); Anion Gap 20.7 (5-19); Aspartate Amino Transferase 21 U/L (0-32); Blood Urea Nitrogen 22 mg/dL (8-23); Calcium 9.5 mg/dL (8.5-10.5); Carbon Dioxide 24 mmol/L (22-29); Chloride 96 mmol/L (98-107); Creatinine Clr Calc Pharmacy 80.2301; Globulin 2.5 g/dL (1.3-4.6); Glucose 119 mg/dL (65-115); Osmolality Calculated 288 mOsm/kg (285-295); Potassium 3.7 mmol/L (3.5-5.1); Sodium 137 mmol/L (136-145); Total Protein 6.9 g/dL (6.6-8.7)
[2025-06-05 07:24] LABS: Troponin(5th) Baseline 9 ng/L (0-10)
[2025-06-05 08:49] LABS: Troponin 5 2HR 8.62 ng/L (0-10)
[2025-06-05 08:51] LABS: Troponin 5 2HR Delta -0.38 ABS# (0-10)
[2025-06-05 09:41] VITALS: BP 125/60; PULSE 56; RESP 17; O2SAT 97
== END 2025-06-05 09:41 | disposition home or self-care (01) ==
PROVIDERS: Emergency Provider Family Medicine; PCP Family Medicine
DX: I10 Essential (primary) hypertension (principal); I48.91 Unspecified atrial fibrillation; Z79.82 Long term (current) use of aspirin; E78.5 Hyperlipidemia, unspecified
CPT/HCPCS: 36415; 71045; 80053; 84484; 85025; 93005; 99285; J9999

== ENCOUNTER 2025-07-12 07:25 | Outpatient (CLI) | payer OTHER, SELFPAY | END 2025-07-12 07:26 | disposition home or self-care (01) | LOC: RAD 07:26 | PROVIDERS: PCP Family Medicine; Visit Provider Internal Medicine Cardiovascular Disease | DX: R07.9 Chest pain, unspecified (principal); I48.91 Unspecified atrial fibrillation | CPT/HCPCS: 93306 ==

== ENCOUNTER → 2025-07-19 09:10 | Outpatient (BNVA) | payer SELFPAY | PROVIDERS: PCP Family Medicine; Visit Provider Dermatology | DX: I95.9 Hypotension, unspecified (principal) | CPT/HCPCS: 84443 ==